=== PATIENT | female | born 1940 | race Caucasian/White ===

== ENCOUNTER → 2018-10-06 | Outpatient (CLI) | payer OTHER ==
--- NOTE | 2018-10-06 15:04 | 2DMMODE ---
[place] [address] 2 D/M-MODE ECHOCARDIOGRAM Name: KRUSEGOLDENRONALD HUGHES Room: [facility]#: [id number] Admission: 10/06/18 Attend Phys: Azael Cuba DO Discharge: Date of : 40 Date of Service: 10/06/18 1503 Report #: [id number] THIS REPORT FOR: //name// APPROVED REPORT Study performed: 10/06/2018 10:05:01 EXAM: Comprehensive 2D, Doppler, and color-flow Echocardiogram Patient Location: Out-Patient BSA: 1.94 HR: 72 bpm BP: 152/88 mmHg Other Information Study Quality: Good Indications Hypertension/HDD 2D Dimensions IVSd: 11.16 (7-11mm) LVOT Diam: 20.56 (18-24mm) LVDd: 40.99 mm PWd: 8.89 (7-11mm) Ascending Ao: 29.40 (22-36mm) LVDs: 21.30 (25-40mm) Aortic Root: 27.16 mm Volumes Left Atrial Volume (Systole) LA ESV Index: 16.20 mL/m2 Aortic Valve AoV Peak Osman.: 1.56 m/s AO Peak Gr.: 9.71 mmHg LVOT Max P.38 mmHg AO Mean Gr.: 4.88 mmHg LVOT Mean P.07 mmHg LVOT Max V: 1.05 m/s AO V2 VTI: 28.33 cm LVOT Mean V: 0.65 m/s JUDIE (VTI): 2.65 cm2 LVOT V1 VTI: 22.59 cm Mitral Valve E/A Ratio: 0.76 MV Decel. Time: 238.27 ms MV E Max Osman.: 0.62 m/s MV PHT: 69.10 ms MVA (PHT): 3.18 [place] [address] 2 D/M-MODE ECHOCARDIOGRAM Name: GOLDEN KRUSE Room: [facility]#: [id number] Admission: 10/06/18 Attend Phys: Azael Cuba DO Discharge: Date of : 40 Date of Service: 10/06/18 1503 Report #: [id number] TDI E/Lateral E': 10.33 E/Medial E': 6.89 Medial E' Osman.: 0.09 m/s Lateral E' Osman.: 0.06 m/s Pulmonary Valve PV Peak Osman.: 1.19 m/s PV Peak Gr.: 5.62 mmHg Left Ventricle The left ventricle is normal size. There is normal LV segmental wall motion. There is normal left ventricular wall thickness. Left ventricular systolic function is normal. LVEF is 55-60%. Grade I - abnormal relaxation pattern. Right Ventricle The right ventricle is normal size. The right ventricular systolic function is normal. Atria The left atrium size is normal. The right atrium size is normal. Aortic Valve The aortic valve is normal in structure. No aortic regurgitation is present. There is no aortic valvular stenosis. Mitral Valve The mitral valve is normal in structure. There is no mitral valve regurgitation noted. No evidence of mitral valve stenosis. Tricuspid Valve The tricuspid valve is normal in structure. There is no tricuspid valve regurgitation noted. Pulmonic Valve The pulmonary valve is normal in structure. There is no pulmonic valvular regurgitation. Great Vessels The aortic root is normal in size. IVC is normal in size and collapses >50% with inspiration. Pericardium There [place] [address] 2 D/M-MODE ECHOCARDIOGRAM Name: KRUSEGOLDEN Room: [facility]#: [id number] Admission: 10/06/18 Attend Phys: Azael Cuba DO Discharge: Date of : 40 Date of Service: 10/06/18 1503 Report #: [id number] <Conclusion> The left ventricle is normal size. There is normal left ventricular wall thickness. Left ventricular systolic function is normal. LVEF is 55-60%. Grade I - abnormal relaxation pattern. There is normal LV segmental wall motion. IVC is normal in size and collapses >50% with inspiration. <ELECTRONICALLY SIGNED> By: Felipe Wolfe MD, FACC 10/06/18 1503 1503 1503 Felipe Wolfe MD, FACC /INF
== END ==
LOC: M.CRD 09:58
DX: I10 Essential (primary) hypertension (principal); R53.82 Chronic fatigue, unspecified

== ENCOUNTER → 2018-10-29 | Outpatient (CLI) | payer OTHER | LOC: M.ULTRA 10-27 14:58 | DX: M79.604 Pain in right leg (principal) ==

== ENCOUNTER 2019-04-09 06:50 | Observation (INO) | payer OTHER ==
[2019-03-25 09:17] LABS: ABSOLUTE BASOPHILS 0.1 thou/uL (0.0-0.2); ABSOLUTE EOSINOPHILS 0.3 thou/uL (0.0-0.7); ABSOLUTE LYMPHOCYTES 1.9 thou/uL (0.8-5.3); ABSOLUTE MONOCYTES 0.7 thou/uL (0.0-1.2); ABSOLUTE NEUTROPHILS 5.3 thou/uL (1.6-8.1); BASOPHILS 0.9 %; EOSINOPHILS 3.4 %; HEMATOCRIT 36.4 % (37.0-47.0); LYMPHOCYTES 23.2 %; MCH 28.3 pg (26.0-34.0); MCV 85.6 fL (80.0-100.0); MONOCYTES 8.5 %; MPV 10.3 fl. (7.2-11.1); NUCLEATED RBCS 0 /100WBC; PLATELET COUNT* 272 thou/uL (150-400); RBC 4.25 mil/uL (4.20-5.00); RDW-CV 14.6 % (10.5-14.5); WBC 8.3 thou/uL (4.0-11.0)
[2019-03-25 09:28] LABS: ALBUMIN 3.4 g/dL (3.4-5.0); CALCIUM 8.8 mg/dL (8.5-10.1); CREATININE 1.2 mg/dL (0.6-1.3); TOTAL BILIRUBIN 0.5 mg/dL (<0.1-1.0)
[2019-03-25 09:44] LABS: POTASSIUM 2.9 mmol/L (3.5-5.1)
[2019-03-26 02:08] LABS: GLYCOHEMOGLOBIN (HGB A1C) 5.6 % (4.8-5.6)
[~2019-04-09] VITALS: Ht 160 cm; Wt 85.7 kg
[~2019-04-09 06:50] MED LIST: DULOXETINE HCL60 MG PO; LEVOXYL137 MCG PO; NORCO 5-325 TA1 EAC1 PO; NORVASC5 M1 PO; OMEPRAZOLE 20 M20 M1 PO; PLAQUENIL200 MG PO
[2019-04-09 08:59] VITALS: BP 127/86
[2019-04-09 20:00] VITALS: BP 134/58
[2019-04-10 00:30] VITALS: BP 192/76
[2019-04-10 04:40] VITALS: BP 158/66
[2019-04-10 08:35] LABS: HEMATOCRIT 31.1 % (37.0-47.0); HEMOGLOBIN 10.6 gm/dL (12.0-15.0)
[2019-04-10 09:10] VITALS: BP 130/63
[2019-04-10 19:33] VITALS: BP 134/48
[2019-04-11 00:02] VITALS: BP 135/58
[2019-04-11 03:56] LABS: HEMATOCRIT 27.8 % (37.0-47.0); HEMOGLOBIN 9.4 gm/dL (12.0-15.0)
[2019-04-11 04:10] VITALS: BP 116/55
[2019-04-11 07:50] VITALS: BP 158/54
[2019-04-11] MEDS ORDERED: ELIQUIS5 MG PO (08:11)
[2019-04-11] MEDS ORDERED: TRAMADOL 50 MG50 MG PO (08:11)
[2019-04-11] MEDS ORDERED: OXYCODONE HCL 55 MG PO (08:11)
[2019-04-11] MEDS ORDERED: COLACE 100 MG100 MG PO (08:11)
[2019-04-11 19:43] VITALS: BP 107/80
[2019-04-12] VITALS: BP 145/54
[2019-04-12 04:00] VITALS: BP 145/60
[2019-04-12 09:40] VITALS: BP 137/61
[2019-04-12 16:39] VITALS: BP 135/63
[2019-04-12 21:21] VITALS: BP 142/62
[2019-04-13 09:01] VITALS: BP 147/61
[2019-04-13 11:04] VITALS: BP 147/61
--- NOTE | 2019-04-14 07:03 | OP ---
[address] [address] OPERATIVE REPORT Name: GOLDEN KRUSE [address] [id number] Admission: 04/09/19 Attend Phys: Jose Rodriguez Discharge: 04/13/19 Date of : 40 Report #: [id number] THIS REPORT FOR: //name// cc: Azael Cuba Adam J DO ~ THIS REPORT FOR: //name// CC: Azael Hughes DATE OF SERVICE: 04/09/2019 PREOPERATIVE DIAGNOSIS: Severe valgus deformity, osteoarthritis of the right knee. POSTOPERATIVE DIAGNOSIS: Severe valgus deformity, osteoarthritis of the right knee. SURGERY PERFORMED: MicroPort cemented 3 component, right total knee arthroplasty. The patient's size femur is 4, tibia 4, 14 polyethylene, 32 patella. SURGEON: Michael Hughes DO. [employer] END: Williams Antonio DO. SECOND ELECTRONIC TECHNOLOGIST: Isaiah Quinones DO. ANESTHESIA: General anesthetic plus an adductor nerve block. ANTIBIOTICS: The patient did receive Ancef 2 grams IV piggyback preoperatively. SPECIMENS: No specimens. COMPLICATIONS: No complications. DRAINS: No drains. GROSS FINDINGS: Prior to surgery, valgus deformity, x-rays were shown and would correlate with intraoperative findings with totally eburnated bone patellofemoral joint as well as the entire lateral compartment. The lateral meniscus was torn as well. Post placement of the total joint arthroplasty through an arc of motion, extension, mid flexion and flexion, she had a very stable arc of motion. SURGERY IN DETAIL: The patient was taken to the operating [place] [address] OPERATIVE REPORT Name: GOLDEN KRUSEINE Room: [address] Roberto Jama#: [id number] Admission: 04/09/19 Attend Phys: Jose Rodriguez Discharge: 04/13/19 Date of : 40 Report #: [id number] table, given a general anesthetic. She did have well-padded tourniquet placed high on right thigh. She underwent a Hibiclens scrub, chlorhexidine prep and sterile draping for right knee surgery. Timeout was called next and verified by everyone in the room for the right knee. At this point in time, I did not use a tourniquet until I did cement in techniques, but I made a midline incision with a 20 blade scalpel through skin and subcutaneous tissues followed with a second medial parapatellar capsular incision, care was taken not to go too far medially. Patella everted, knee flexed 90 degrees. Hemostasis easily maintained. Excess osteophytes were removed. Distal femoral drill hole was made in routine fashion. I did take extra 2 mm of bone off the distal femur secondary to slight extension lag as well. At this point in time, I went down and did an external tibia guide across the ankle secure the cutting block proximally and measured off the high medial side. A wafer of bone was cut and removed in routine fashion. Once this was accomplished, I did go ahead and use Whitesides line and marked it on the femur. I did measure the size for the femur of 4, was selected appropriately drilled at 3 degrees. The 4-in-1 block was applied and all bone edges were cut and removed. The femoral block was removed. At this point in time, I went down sized the tibia to #4, secured the baseplate into position with pins. I went back, put the trial femur into position and I did do the trochlear cut. At this point in time, I tried a 10 mm polyethylene, it was okay, but it looked like we could do a 12-14 potentially so now I prepared the patella using a Jose A reamer. The patella was cut size 32 appropriately, it tracked well. At this point in time, I Esmarched the lower leg and inflated tourniquet to 300 mmHg, removed the femoral component and the polyethylene trial, securely reamed and cruciform cut was made on the tibia, then the baseplate was removed. I did a pulsatile lavage irrigation across the knee region followed with 1 stage cementing techniques, cementing the #[address], removing all excess cement, 4 was tamped into position. All excess cement was removed and I did a 12 mm polyethylene at this stage in her leg in extension until it hardened, but the patella was also cemented. Once the cement hardened, I put the leg through an arc of motion, patella tracked well, but also felt like it could do a little bit better stabilization with a 14 trial was selected for polyethylene and put in the tibia baseplate and actually had excellent stability now. The trial was removed. I copiously irrigated the knee, removed any excess cement that might be present and then I clicked and tamped into position the polyethylene into the baseplate. At this point in time, a tourniquet was released. I did a TXA solution followed with normal saline wash, closed that capsule with 1 Vicryl, 1 Ticron [id number] fashion, subcutaneous tissues with 2-0 Monocryl, running Stratafix and Dermabond, Mepilex dressing was applied, transferred off the table, taken to recovery in stable condition. [place] [address] OPERATIVE REPORT Name: GOLDEN KRUSE Room: [address] Roberto MJajaRJaja#: [id number] Admission: 04/09/19 Attend Phys: Jose Rodriguez Discharge: 04/13/19 Date of : 40 Report #: [id number] I attest, I was present for all critical aspects of surgery. Needle, instrument, sponge counts were correct. <ELECTRONICALLY SIGNED> By: Michael uHghes DO 04/14/19 0703 1250 1416Csusan Hughes DO /simi
--- NOTE | 2019-04-16 14:49 | EKG ---
[place] [address] ELECTROCARDIOGRAM REPORT Name: GOLDEN KRUSE Room: [address]#: [id number] Admission: 04/09/19 Attend Phys: Josh Vuong Discharge: 04/13/19 Date of : 40 Date of Service: 03/25/19 0933 Report #: [id number] THIS REPORT FOR: cc: Azael Cuba Adam J DO Holkins,Emery Khan MD [facility] ~ THIS REPORT FOR: //name// [facility] Test Date: 2019-03-25 Test Time: 09:33:50 Pat Name: GOLDEN KRUSE Department: Room: Gender: F Manager Unix: : 1940 Requested By: Michael Hughes Order Number: [id number] Eliana MD: Emery Gaston Measurements Intervals [place] Rate: 63 P: 8 MO: 131 QRS: -1 QRSD: 85 T: 45 QT: 451 QTc: 462 Interpretive Statements Sinus rhythm Low voltage, precordial leads Borderline T wave abnormalities No previous ECG available for comparison Electronically Signed On 03-25-2019 11:20:33 [place] [employer] by Emery Gaston [email or web address] <ELECTRONICALLY SIGNED> By: Emery Gaston MD, [facility] 03/25/19 1120 0933 0933 Emery Gaston MD, [facility] /EPI
== END 2019-04-13 12:30 | disposition short-term general hospital (02) ==
LOC: M.PRE 06:50 → M.TBA 08:23 → M.ORTHSURG 08:23 → M.TBA 08:23 → M.PRE 10:16 → M.ORTHSURG 15:15
PROVIDERS: Orthopaedic Surgery; ADMIT Internal Medicine; ATTEND Internal Medicine
DX: M17.11 Unilateral primary osteoarthritis, right knee (principal); M21.061 Valgus deformity, not elsewhere classified, right knee; J96.01 Acute respiratory failure with hypoxia; G92 Toxic encephalopathy; I10 Essential (primary) hypertension; F32.9 Major depressive disorder, single episode, unspecified; K21.9 Gastro-esophageal reflux disease without esophagitis; E66.9 Obesity, unspecified; I50.32 Chronic diastolic (congestive) heart failure; I11.0 Hypertensive heart disease with heart failure; D62 Acute posthemorrhagic anemia; D64.9 Anemia, unspecified; M25.561 Pain in right knee; Z87.891 Personal history of nicotine dependence; Z79.899 Other long term (current) drug therapy

== ENCOUNTER → 2019-06-23 | Outpatient (CLI) | payer OTHER ==
[~2019-06-23] MED LIST changes: +COLACE 100 MG100 MG PO; +ELIQUIS5 MG PO; +OXYCODONE HCL 55 MG PO; +TRAMADOL 50 MG50 MG PO
[2019-06-23 11:26] LABS: ABSOLUTE BASOPHILS 0.1 thou/uL (0.0-0.2); ABSOLUTE EOSINOPHILS 0.2 thou/uL (0.0-0.7); ABSOLUTE LYMPHOCYTES 2.4 thou/uL (0.8-5.3); ABSOLUTE MONOCYTES 1.1 thou/uL (0.0-1.2); ABSOLUTE NEUTROPHILS 8.2 thou/uL (1.6-8.1); BASOPHILS 0.9 %; EOSINOPHILS 1.5 %; HEMATOCRIT 35.2 % (37.0-47.0); HEMOGLOBIN 11.2 gm/dL (12.0-15.0); LYMPHOCYTES 20.2 %; MCH 26.2 pg (26.0-34.0); MCHC 31.9 g/dL (28.0-37.0); MCV 81.9 fL (80.0-100.0); MONOCYTES 9.1 %; MPV 9.9 fl. (7.2-11.1); NUCLEATED RBCS 0 /100WBC; PLATELET COUNT* 363 thou/uL (150-400); POLYS 68.3 %; RBC 4.29 mil/uL (4.20-5.00); RDW-CV 14.9 % (10.5-14.5); WBC 11.9 thou/uL (4.0-11.0)
[2019-06-23 11:37] LABS: CALCIUM 9.3 mg/dL (8.5-10.1); PHOSPHORUS* 3.8 mg/dL (2.5-4.9); POTASSIUM 3.4 mmol/L (3.5-5.1)
[2019-06-23 11:42] LABS: CALCIUM 9.6 mg/dL (8.5-10.1); CREATININE 1.1 mg/dL (0.6-1.3); PHOSPHORUS* 4.2 mg/dL (2.5-4.9)
[2019-06-23 23:07] LABS: IgA 362 mg/dL (64-422); IgG 920 mg/dL (586-1602); IgM 66 mg/dL (26-217)
[2019-06-24 12:07] LABS: KAPPA FREE LIGHT CHAINS 21.2 mg/L (3.3-19.4); LAMBDA FREE LIGHT CHAINS 13.7 mg/L (5.7-26.3)
== END ==
LOC: M.ULTRA 10:07
PROVIDERS: Internal Medicine
DX: N28.9 Disorder of kidney and ureter, unspecified (principal)

== ENCOUNTER → 2019-11-02 | Outpatient (CLI) | payer OTHER | LOC: M.RAD 10:37 | DX: M51.36 Other intervertebral disc degeneration, lumbar region (principal); M41.86 Other forms of scoliosis, lumbar region ==

== ENCOUNTER → 2019-11-12 | Outpatient (CLI) | payer OTHER | LOC: M.RAD 13:06 | PROVIDERS: ATTEND Family Medicine | DX: Z13.820 Encounter for screening for osteoporosis (principal); E28.0 Estrogen excess; Z78.0 Asymptomatic menopausal state ==

== ENCOUNTER 2020-02-14 09:35 | Emergency (ER) | payer OTHER ==
[~2020-02-14] VITALS: Ht 162.6 cm; Wt 81.7 kg
[2020-02-14] MEDS ORDERED: NEURONTIN 300M300 M2 PO (09:52)
[2020-02-14 11:56] LABS: ABSOLUTE EOSINOPHILS 0.3 thou/uL (0.0-0.7); ABSOLUTE LYMPHOCYTES 1.4 thou/uL (0.8-5.3); ABSOLUTE MONOCYTES 0.7 thou/uL (0.0-1.2); ABSOLUTE NEUTROPHILS 5.9 thou/uL (1.6-8.1); BASOPHILS 0.3 %; HEMATOCRIT 33.4 % (37.0-47.0); HEMOGLOBIN 10.6 gm/dL (12.0-15.0); LYMPHOCYTES 17.1 %; MCH 25.2 pg (26.0-34.0); MCHC 31.7 g/dL (28.0-37.0); MCV 79.5 fL (80.0-100.0); MONOCYTES 8.5 %; NUCLEATED RBCS 0 /100WBC; PLATELET COUNT* 277 thou/uL (150-400); POLYS 70.1 %; RDW-CV 16.4 % (10.5-14.5); WBC 8.4 thou/uL (4.0-11.0)
[2020-02-14 12:03] LABS: CREATININE 1.1 mg/dL (0.6-1.3); POTASSIUM 3.8 mmol/L (3.5-5.1)
[2020-02-14 12:08] LABS: ALBUMIN 3.4 g/dL (3.4-5.0); TOTAL BILIRUBIN 0.6 mg/dL (<0.1-1.0); TOTAL PROTEIN 7.4 g/dL (6.4-8.2)
[2020-02-14] MEDS ORDERED: MEDROLDOSEPACK PO (12:47)
[2020-02-14] MEDS ORDERED: NORCO 5-325 TA1 EAC2 PO (12:47)
[2020-02-14 13:08] VITALS: BP 139/72
== END 2020-02-14 13:09 | disposition home or self-care (01) ==
LOC: M.ERS 09:35
PROVIDERS: Nurse Practitioner Family
DX: M54.41 Lumbago with sciatica, right side (principal); Z88.2 Allergy status to sulfonamides; E03.9 Hypothyroidism, unspecified; K21.9 Gastro-esophageal reflux disease without esophagitis; M79.7 Fibromyalgia; Z96.651 Presence of right artificial knee joint

== ENCOUNTER → 2020-11-06 | Outpatient (CLI) | payer OTHER ==
[~2020-11-06] MED LIST changes: +MEDROLDOSEPACK PO; +NEURONTIN 300M300 M2 PO; +NORCO 5-325 TA1 EAC2 PO
--- NOTE | 2020-11-06 12:14 | 2DMMODE ---
[place] [address] 2 D/M-MODE ECHOCARDIOGRAM Name: GOLDEN KRUSE Room: [facility]#: [id number] Admission: 11/06/20 Attend Phys: Azael Cuba DO Discharge: Date of : 40 Date of Service: 11/06/20 1214 Report #: [id number] THIS REPORT FOR: cc: Azael Cuba Adam J DO Blick, David R. MD [facility] ~ APPROVED REPORT Study performed: 11/06/2020 08:27:25 EXAM: Comprehensive 2D, Doppler, and color-flow Echocardiogram Patient Location: Out-Patient BSA: 1.87 HR: 60 bpm BP: 140/60 mmHg Other Information Study Quality: Excellent Indications Orthopnea 2D Dimensions IVSd: 18.02 (7-11mm) LVOT Diam: 20.40 (18-24mm) LVDd: 39.77 mm PWd: 15.12 (7-11mm) Ascending Ao: 31.73 (22-36mm) LVDs: 25.35 (25-40mm) Aortic Root: 29.52 mm Volumes Left Atrial Volume (Systole) LA ESV Index: 29.20 mL/m2 Aortic Valve AoV Peak Osman.: 1.41 m/s AO Peak Gr.: 7.97 mmHg LVOT Max P.30 mmHg AO Mean Gr.: 4.18 mmHg LVOT Mean P.96 mmHg LVOT Max V: 1.04 m/s AO V2 VTI: 29.00 cm LVOT Mean V: 0.64 m/s JUDIE (VTI): 2.77 cm2 LVOT V1 VTI: 24.54 cm Mitral Valve E/A Ratio: 2.02 [place] [address] 2 D/M-MODE ECHOCARDIOGRAM Name: GOLDEN KRUSE Room: [facility]#: [id number] Admission: 11/06/20 Attend Phys: Azael Cuba DO Discharge: Date of : 40 Date of Service: 11/06/20 1214 Report #: [id number] MV Decel. Time: 192.69 ms MV E Max Osman.: 1.00 m/s MV PHT: 55.88 ms MVA (PHT): 3.94 cm2 TDI E/Lateral E': 11.11 E/Medial E': 7.69 Medial E' Osman.: 0.13 m/s Lateral E' Osman.: 0.09 m/s Pulmonary Valve PV Peak Osman.: 1.03 m/s PV Peak Gr.: 4.27 mmHg Tricuspid Valve RAP Estimate: 5.00 mmHg TR Peak Gr.: 25.74 mmHg RVSP: 30.74 mmHg PA Pressure: 30.74 mmHg Left Ventricle The left ventricle is normal size. There is normal LV segmental wall motion. Mild concentric left ventricular hypertrophy. Left ventricular systolic function is normal. The left ventricular ejection fraction is within the normal range. LVEF is 55-60%. Grade I - abnormal relaxation pattern. Right Ventricle The right ventricle is normal size. The right ventricular systolic function is normal. Atria Left atrium is mildly dilated. The right atrium size is normal. Aortic Valve The aortic valve is normal in structure. No aortic regurgitation is present. There is no aortic valvular stenosis. Mitral Valve The mitral valve is normal in structure. Mild mitral regurgitation. No evidence of mitral valve stenosis. Tricuspid Valve The tricuspid valve is normal in structure. Mild tricuspid regurgitation[place] [address] 2 D/M-MODE ECHOCARDIOGRAM Name: GOLDEN KRUSEINE Room: [facility]#: [id number] Admission: 11/06/20 Attend Phys: Azael Cuba DO Discharge: Date of : 40 Date of Service: 11/06/20 1214 Report #: [id number] The pulmonary valve is normal in structure. There is no pulmonic valvular regurgitation. Great Vessels The aortic root is normal in size. IVC is normal in size and collapses >50% with inspiration. Pericardium There is no pericardial effusion. <Conclusion> Mild concentric left ventricular hypertrophy. LVEF is 55-60%. Left atrium is mildly dilated. Mild mitral regurgitation. <ELECTRONICALLY SIGNED> By: Rohit Hester MD, FACC 11/06/20 1214 13 13 Rohit Hester MD, FACC /INF
== END ==
LOC: M.CRD 08:29
PROVIDERS: ATTEND Family Medicine
DX: I08.1 Rheumatic disorders of both mitral and tricuspid valves (principal); R06.01 Orthopnea